=== PATIENT | female | born 1965 | race Caucasian/White ===

== ENCOUNTER 2020-05-24 15:27 | Emergency (ER) | payer BC, OTHER ==
[2020-05-24] MEDS ORDERED: diphenhydrAMINE 50 MG/ML SDV IM ONE (15:43)
[2020-05-24] MEDS ORDERED: EPINEPHrine 1 MG/ML SDV IM ONE (15:43)
[2020-05-24] MEDS ORDERED: methylPREDNISolone Sodium Succinate 125 MG/2 ML SDV IM ONE (15:43)
--- NOTE | 2020-05-24 15:46 | EDM.PDOC ---
ED HPI GENERAL MEDICAL PROBLEM - General Chief Complaint: Allergic Reaction Stated Complaint: ALLERGIC REACTION Time Seen by Provider: 05/24/20 15:38 Source of Information: Reports: Patient, Family, RN Notes Reviewed History Limitations: Reports: No Limitations - History of Present Illness INITIAL COMMENTS - FREE TEXT/NARRATIVE: 54-year-old female presents emergency department today with allergic type reaction she had an alcohol called [place] today which she is never tasted before this is a flavored liquid where she is having a reaction to that complains of tongue swelling and developed a rash predominantly on the trunk of her body does feel slightly short of breath. She did have a reaction similar may be 20 years ago to a different alcohol - Related Data Allergies Allergy/AdvReac Type Severity Reaction Status Date / Time ethinyl estradiol Allergy Swollen Verified 05/24/20 15:59 [From ()] Eyes levonorgestrel Allergy Swollen Verified 05/24/20 15:59 [From ()] Eyes Home Meds: Home Meds NK [No Known Home Meds] 05/24/20 [History] Past Medical History Immunologic History: Reports: Other (See Below) (Allergic reaction to alcohol) Social & Family History - Tobacco Use Smoking Status *Q: Never Smoker ED ROS ALLERGIC REACTION - Review of Systems Review Of Systems: See Below Constitutional: Reports: No Symptoms HEENT: Reports: No Symptoms, Other Respiratory: Reports: Shortness of Breath (Tongue swelling) Cardiovascular: Reports: No Symptoms GI/Abdominal: Reports: No Symptoms : Reports: No Symptoms Musculoskeletal: Reports: No Symptoms Skin: Reports: Rash ED EXAM GENERAL NO PERIP PULSE - Physical Exam Exam: See Below Exam Limited By: No Limitations General Appearance: Alert, Mild Distress Throat/Mouth: Normal Inspection, Normal Lips, Normal Teeth, Normal Gums, Normal Oropharynx, Normal Voice, No Airway Compromise Head: Atraumatic, Normocephalic Neck: Normal Inspection, Supple, Non-Tender, Full Range of Motion Respiratory/Chest: No Respiratory Distress, Lungs Clear, Normal Breath Sounds, No Accessory Muscle Use, Chest Non-Tender Cardiovascular: Regular Rate, Rhythm, No Murmur GI/Abdominal: Soft, Non-Tender Course - Vital Signs Last Recorded V/S: Last Vital Signs Temp 97.2 F 05/24/20 15:36 Pulse 117 H 05/24/20 15:36 Resp 16 05/24/20 15:36 BP 156/117 H 05/24/20 15:36 Pulse Ox 95 05/24/20 15:36 - Orders/Labs/Meds Meds: Medications Discontinued Medications Generic Name Dose Route Start Last Admin Trade Name Elvis PRN Reason Stop Dose Admin Diphenhydramine HCl 50 mg 05/24/20 15:43 05/24/20 15:49 Benadryl IM 05/24/20 15:44 50 mg ONETIME ONE Administration Epinephrine HCl 0.4 mg 05/24/20 15:43 05/24/20 15:47 Adrenalin IM 05/24/20 15:44 0.4 mg ONETIME ONE Administration Methylprednisolone Sodium Succinate 125 mg 05/24/20 15:43 05/24/20 15:51 Solu-Medrol IM 05/24/20 15:44 125 mg ONETIME ONE Administration Departure - Departure Time of Disposition: 17:07 Disposition: Home, Self-Care 01 Condition: Fair Clinical Impression: Allergic reaction Qualifiers: Encounter type: initial encounter Qualified Code(s): T78.40XA - Allergy, unspecified, initial encounter - Discharge Information Instructions: Allergies, Adult, [id number] Referrals: PCP,None [Primary Care Provider] - Forms: ED Department Discharge Additional Instructions: Continue to use Benadryl as needed for symptomatic care, fill your prescription for EpiPen, please followup with your primary care provider in 3-5 days if not better, please call return to the emergency department with worsening of symptoms. Sepsis Event Note (ED) - Evaluation Sepsis Screening Result: No Definite Risk - Focused Exam Vital Signs: Vital Signs Temp Pulse Resp BP Pulse Ox 05/24/20 15:36 97.2 F 117 H 16 156/117 H 95 - Assessment/Plan Plan: Assessment Acuity = acute Site and laterality = allergic reaction Etiology = alcohol ozzo Manifestations = none Location of injury = Home Lab values = none Plan Good improvement with Benadryl, epinephrine and Solu-Medrol prescription written for EpiPen she is going to try and avoid this alcohol in the future follow-up primary care upon return home This note was dictated using [employer] voice recognition software please call with any questions on syntax or grammar.
== END 2020-05-24 17:20 | disposition home or self-care (01) ==
LOC: JP.ED 15:27
DX: T78.40XA Allergy, unspecified, initial encounter (principal); Z88.8 Allergy status to other drugs, medicaments and biological substances
CPT/HCPCS: 96372; 99283; J0171; J1200; J2930